=== PATIENT | male | born 1960 | race Caucasian/White ===

== ENCOUNTER → 2020-06-05 | Outpatient (CLI) | payer OTHER ==
[~2020-06-05] MED LIST: CLINDAMYCIN HC150 MG PO; ULTRAM50 MG PO
[2020-06-05 09:11] LABS: HEMOGLOBIN 14.2 g/dL (14.0-18.0)
[2020-06-05 09:26] LABS: INR 0.84; PROTHROMBIN TIME 11.9 seconds (11.9-14.5)
[2020-06-05 09:27] LABS: PARTIAL THROMBOPLASTIN TIME 25.1 seconds (23.8-35.5)
[2020-06-05 09:34] LABS: BLOOD UREA NITROGEN 20 mg/dL (7-26); BUN/CREATININE RATIO 19 (6-25); CREATININE, SERUM 1.03 mg/dL (0.72-1.25); EST GLOMERULAR FILTRATION RATE > 60 ML/MIN (60-)
== END ==
LOC: DX 08:41
PROVIDERS: ATTEND Internal Medicine Infectious Disease
DX: M46.46 Discitis, unspecified, lumbar region (principal)
CPT/HCPCS: 36415; 36569; 71045; 82565; 84520; 85014; 85049; 85610; 85730